=== PATIENT | male | born 1990 ===

== ENCOUNTER 2018-02-23 20:17 | Emergency (ER) | payer MEDICAID ==
[2018-02-23 20:42] VITALS: TEMP 97.9; O2SAT 98
[2018-02-23] MEDS ORDERED: Albuterol-Ipratrop 3 mg / 0.5 (3 ml) UD IH STA (21:06)
--- NOTE | 2018-02-23 21:09 | ED PDOC ---
HPI: CCC, URI, Sore Throat Time Seen by Provider: 02/23/18 20:49 Chief Complaint (Nursing): GI Problem Chief Complaint (Provider): cough History Per: Patient Onset/Duration Of Symptoms: Days (2 weeks) Current Symptoms Are (Timing): Still Present Additional Complaint(s): 27 y/o male presents for evaluation of persistent cough x 2 weeks. Patient states symptoms started as mild cold symptoms. Patient states now he will randomly get excessive build up of phlegm in his throat, which causes a persistent cough. Patient states when he eats solid foods symptoms become worse and he will vomit up phlegm. Denies fever, headache, dizziness, chest pain, shortness of breath, abdominal pain, changes in bowel movements. Past Medical History Reviewed: Historical Data, Nursing Documentation, Vital Signs Vital Signs: Last Vital Signs Temp 97.9 F 02/23/18 20:37 Pulse 65 02/23/18 21:42 Resp 16 02/23/18 21:42 BP 113/93 H 02/23/18 21:42 Pulse Ox 98 02/23/18 21:42 - Medical History PMH: No Chronic Diseases - Surgical History Surgical History: No Surg Hx - Family History Family History: States: No Known Family Hx - Social History Current smoker - smoking cessation education provided: No Ex-Smoker (has not smoked in the last 12 months): Yes Alcohol: Social Drugs: Denies - Home Medications Home Medications: Ambulatory Orders Medication Instructions Recorded Polyethylene Glycol 3350 [Miralax] 17 gm PO DAILY 4 Days ml 10/14/15 Albuterol 0.083% [Albuterol 1 vial IH Q6 PRN #30 vial 02/23/18 Sulfate 3 Ml] Famotidine [Pepcid] 20 mg PO BID #10 tab 02/23/18 Fluticasone Nasal [Flonase] 1 actuation NS BID #1 bottle 02/23/18 Guaifenesin/Pseudoephedrne HCl 1 tab PO Q12 #10 tab 02/23/18 [Mucinex D ER 1,200-120 mg Tab] Mask, Face [Nebulizer Aerosol Mask 1 dev INH PRN PRN #1 dev 02/23/18 Adult] Nebulizer [Compact Compressor 1 dev XX Q6 PRN #1 dev 02/23/18 Nebulizer] - Allergies Allergies/Adverse Reactions: Allergies Allergy/AdvReac Type Severity Reaction Status Date / Time No Known Allergies Allergy Verified 10/14/15 20:29 Review of Systems ROS Statement: Except As Marked, All Systems Reviewed And Found Negative Respiratory: Positive for: Cough, Sputum Physical Exam - Reviewed Nursing Documentation Reviewed: Yes Vital Signs Reviewed: Yes - Physical Exam Appears: Positive for: Well, Non-toxic, No Acute Distress Head Exam: Positive for: ATRAUMATIC, NORMAL INSPECTION, NORMOCEPHALIC Skin: Positive for: Normal Color Eye Exam: Positive for: Normal appearance ENT: Positive for: Normal ENT Inspection Cardiovascular/Chest: Positive for: Regular Rate, Rhythm Respiratory: Positive for: Normal Breath Sounds Gastrointestinal/Abdominal: Positive for: Normal Exam Back: Positive for: Normal Inspection Extremity: Positive for: Normal ROM Neurologic/Psych: Positive for: Alert, Oriented - ECG O2 Sat by Pulse Oximetry: 98 - Progress ED Course And Treament: patient refusing labs/IV at this time duoneb, chest xray ordered EXAM: XR Chest, 2 Views EXAM DATE/TIME: 02/23/2018 9:06 PM CLINICAL HISTORY: 27 years old, male; Signs and symptoms; Cough; Symptoms not specified; Additional info: Persistent cough TECHNIQUE: Frontal and lateral views of the chest. COMPARISON: There are no prior studies for comparison. FINDINGS: Heart and mediastinum: Heart size, mediastinal and hilar contours are normal. Vascularity: Vascularity is normal. Lungs: Lungs are clear. Pleural spaces: There are no pleural effusions. Bony structures: There are no acute osseous abnormalities. IMPRESSION: Normal chest On re-eval, patient states his mucous is loosening up after neb given. Patient tolerated applesauce Patient educated on findings, discharged with rx flonase, mucinex, pepcid, albuterol neb Advised follow up PMD 2-3 days. Return precautions given. Disposition - Clinical Impression Clinical Impression: Phlegm in throat - Patient ED Disposition Is Patient to be Admitted: No Counseled Patient/Family Regarding: Studies Performed, Diagnosis, Need For Followup, Rx Given - Disposition Referrals: [facility] [Outside] Disposition: Routine/Home Disposition Time: 23:13 Condition: IMPROVED Prescriptions: Albuterol 0.083% [Albuterol Sulfate 3 Ml] 1 vial IH Q6 PRN #30 vial PRN Reason: Cough Famotidine [Pepcid] 20 mg PO BID #10 tab Fluticasone Nasal [Flonase] 1 actuation NS BID #1 bottle Guaifenesin/Pseudoephedrne HCl [Mucinex D ER 1,200-120 mg Tab] 1 tab PO Q12 #10 tab Mask, Face [Nebulizer Aerosol Mask Adult] 1 dev INH PRN PRN #1 dev PRN Reason: Wheezing Nebulizer [Compact Compressor Nebulizer] 1 dev XX Q6 PRN #1 dev PRN Reason: Wheezing Forms: [facility] (Samoan)
[2018-02-23] MEDS ORDERED: Albuterol-Ipratrop 3 mg / 0.5 (3 ml) UD ONE (21:30)
[2018-02-23 21:42] VITALS: BP 113/93; PULSE 65; RESP 16
--- NOTE | 2018-02-23 22:42 | RAD ---
EXAM: XR Chest, 2 Views EXAM DATE/TIME: 02/23/2018 9:06 PM CLINICAL HISTORY: 27 years old, male; Signs and symptoms; Cough; Symptoms not specified; Additional info: Persistent cough TECHNIQUE: Frontal and lateral views of the chest. COMPARISON: There are no prior studies for comparison. FINDINGS: Heart and mediastinum: Heart size, mediastinal and hilar contours are normal. Vascularity: Vascularity is normal. Lungs: Lungs are clear. Pleural spaces: There are no pleural effusions. Bony structures: There are no acute osseous abnormalities. IMPRESSION: Normal chest
== END 2018-02-23 23:17 | disposition home or self-care (01) ==
LOC: H.ER 20:17
DX: J02.9 Acute pharyngitis, unspecified (principal); R05 Cough